=== PATIENT | female | born 1990 | race Two or more races ===

== ENCOUNTER 2017-04-08 01:30 | Outpatient (CLI) | payer OTHER | END 2017-04-08 13:51 | disposition home or self-care (01) | LOC: OBS/DEL 01:30 | DX: O23.43 Unspecified infection of urinary tract in pregnancy, third trimester (principal) ==

== ENCOUNTER → 2017-04-10 | Outpatient (CLI) | payer OTHER | END | disposition left against medical advice (07) | LOC: OBS/DEL 02:02 | DX: O47.1 False labor at or after 37 completed weeks of gestation (principal) ==